=== PATIENT | female | born 1995 ===

== ENCOUNTER 2017-07-02 15:30 | Emergency (ER) | payer OTHER ==
[~2017-07-02] VITALS: Ht 165.1 cm; Wt 59.0 kg
[2017-07-02 15:48] VITALS: TEMP 37; Ht 165.1 cm; Wt 59.0 kg
[2017-07-02] MEDS ORDERED: SODIUM CHLORIDE 0.9% 1000ML 2,000 ML IV STA (16:00)
--- NOTE | 2017-07-02 16:24 | DIAGNOSTIC IMAGING REPORT ---
SINGLE VIEW CHEST CLINICAL HISTORY: Cough. FINDINGS: An AP, portable, upright chest radiograph is obtained. No prior studies are available for comparison at the time of dictation. The examination is degraded by portable technique. The cardiomediastinal silhouette is unremarkable. There are low lung volumes. Bibasilar airspace opacities are noted. No large pleural effusion or pneumothorax is seen. The bony thorax is grossly intact. IMPRESSION: There are low lung volumes with bibasilar airspace opacities. This likely represents atelectasis. Correlate clinically for evidence of developing pneumonia. Electronically signed by: Pepe Chacon M.D. 07/02/2017 4:23 PM Dictated Date/Time: 07/02/2017 4:22 PM
[2017-07-02 16:36] LABS: BASO % 0.3 %; BASO ABS # 0.02 K/uL (0-0.2); EOS % 2.8 %; EOS ABS # 0.17 K/uL (0-0.5); HEMATOCRIT 33.6 % (37-47); HEMOGLOBIN 12.1 g/dL (12.0-16.0); LYMPH ABS # 2.37 K/uL (1.2-3.4); MEAN CORPUSCULAR HEMOGLOBIN 29.9 pg (25-34); MEAN PLATELET VOLUME 8.9 fL (7.4-10.4); MONO % 6.4 %; MONO ABS # 0.39 K/uL (0.11-0.59); NEUT % 51.5 %; NEUT ABS # 3.12 K/uL (1.4-6.5); PLATELET COUNT 232 K/uL (130-400); RED CELL DISTRIBUTION WIDTH CV 12.7 % (11.5-14.5); RED CELL DISTRIBUTION WIDTH SD 38.4 fL (36.4-46.3); WHITE BLOOD COUNT 6.07 K/uL (4.8-10.8)
[2017-07-02 16:54] LABS: CALCIUM 8.4 mg/dl (8.5-10.1); CREATININE 0.81 mg/dl (0.60-1.20); POTASSIUM 3.4 mmol/L (3.5-5.1)
[2017-07-02 16:56] LABS: INFLUENZA B ANTIGEN Neg for Influ B (NEG)
--- NOTE | 2017-07-02 17:47 | DIAGNOSTIC IMAGING REPORT ---
CHEST 2 VIEWS ROUTINE CLINICAL HISTORY: Fever, cough. ABNORMAL CHEST X-RAY COMPARISON STUDY: 07/02/2017 FINDINGS: There is an improved inspiration. The cardiac and mediastinal contours remain stable. There is no focal pulmonary consolidation. There is no failure. There are no pleural effusions.[ IMPRESSION: No active disease in the chest. Electronically signed by: Stewart Campos M.D. 07/02/2017 5:46 PM Dictated Date/Time: 07/02/2017 5:45 PM
[2017-07-02 18:28] VITALS: BP 109/62; PULSE 82; O2SAT 100
--- NOTE | 2017-07-02 21:40 | EMERGENCY ROOM VISIT NOTE ---
History Report prepared by Ignacio: Edwina Eastman Under the Supervision of: Clarissa RossO. First contact with patient: 15:52 Chief Complaint: FLU LIKE SX Stated Complaint: HEADACHE, COUGH, FEVER, BODY PAINS, CONGESTION History of Present Illness The patient is a 22 year old female who presents to the Emergency Room with complaints of worsening flu-like symptoms for the past 5 days. Initially her symptoms began with a headache. Today she is feeling generally weak all over. Her headache has persisted. She has felt like she had a fever although she did not take her temperature. The patient reports sinus congestion, rhinorrhea, ear congestion, sore throat, and a productive cough with yellow, mucousy sputum. Her symptoms are worse at night. She rates her pain as a 6/10 in severity. She has been taking Motrin and Tylenol for her symptoms but did not take any today. Pt denies change in vision, chest pain, shortness of breath, nausea, vomiting, diarrhea, abdominal pain, urinary symptoms, melena, and abnormal vaginal discharge or bleeding. Her LNMP was 3 days ago. The patient was seen at [facility] previously for her symptoms and tested negative for the flu at that time. Source of History: patient Onset: 5 days ago Position: other (global) Symptom Intensity: 6/10 Quality: other (flu-like) Timing: worsening Modifying Factors (Worsening): other (nighttime) Modifying Factors (Relieving): tylenol, ibuprofen Associated Symptoms: + fevers, + headache, + sorethroat, + cough, + weakness , No chest pain, No SOB, No nausea, No vomiting, No abdominal pain, No melena, No diarrhea, No urinary symptoms Note: Pt notes sinus congestion, ear congestion, rhinorrhea. Review of Systems See HPI for pertinent positives & negatives. A total of 10 systems reviewed and were otherwise negative. Past Medical & Surgical Medical Problems: (1) No significant past medical history Family History No pertinent history stated. Social History Smoking Status: Never Smoker Occupation Status: [employer] student Allergies Coded Allergies: No Known Allergies (Unverified , 07/02/17) Physical Exam Vital Signs Date Time Temp Pulse Resp B/P (MAP) Pulse Ox O2 Delivery O2 Flow Rate FiO2 07/02/17 18:28 82 18 109/62 100 Room Air 07/02/17 16:48 70 18 104/65 100 Room Air 07/02/17 15:48 37.0 129 20 113/66 100 Room Air Physical Exam GENERAL: Sitting up in bed, alert, well appearing, well nourished, no distress, non-toxic EYE EXAM: normal conjunctiva. EARS: TMs clear bilaterally. OROPHARYNX: no exudate, no erythema, lips, buccal mucosa, and tongue normal and mucous membranes are moist NECK: supple, no nuchal rigidity, no adenopathy, non-tender LUNGS: Clear to auscultation. Normal chest wall mechanics HEART: no murmurs, S1 normal and S2 normal ABDOMEN: abdomen soft, non-tender, normo-active bowel sounds, no masses, no rebound or guarding. BACK: Back is symmetrical on inspection and there is no deformity, no midline tenderness, no CVA tenderness. SKIN: no rashes and no bruising UPPER EXTREMITIES: upper extremities are grossly normal. LOWER EXTREMITIES: No pitting edema. NEURO EXAM: Normal sensorium, cranial nerves II-XII grossly intact, normal speech, no gross weakness of arms, no gross weakness of legs. Ambulates without difficulty. Medical Decision & Procedures ER Provider Diagnostic Interpretation: Radiology results as stated below per my review and the radiologist's interpretation: SINGLE VIEW CHEST CLINICAL HISTORY: Cough. FINDINGS: An AP, portable, upright chest radiograph is obtained. No prior studies are available for comparison at the time of dictation. The examination is degraded by portable technique. The cardiomediastinal silhouette is unremarkable. There are low lung volumes. Bibasilar airspace opacities are noted. No large pleural effusion or pneumothorax is seen. The bony thorax is grossly intact. IMPRESSION: There are low lung volumes with bibasilar airspace opacities. This likely represents atelectasis. Correlate clinically for evidence of developing pneumonia. Electronically signed by: Pepe Chacon M.D. 07/02/2017 4:23 PM Dictated Date/Time: 07/02/2017 4:22 PM CHEST 2 VIEWS ROUTINE CLINICAL HISTORY: Fever, cough. ABNORMAL CHEST X-RAY COMPARISON STUDY: 07/02/2017 FINDINGS: There is an improved inspiration. The cardiac and mediastinal contours remain stable. There is no focal pulmonary consolidation. There is no failure. There are no pleural effusions.[ IMPRESSION: No active disease in the chest. Electronically signed by: Stewart Campos M.D. 07/02/2017 5:46 PM Dictated Date/Time: 07/02/2017 5:45 PM Laboratory Results 07/02/17 16:21 Red Blood Count 4.05, Mean Corpuscular Volume 83.0, Mean Corpuscular Hemoglobin 29.9, Mean Corpuscular Hemoglobin Concent 36.0, Mean Platelet Volume 8.9, Neutrophils (%) (Auto) 51.5, Lymphocytes (%) (Auto) 39.0, Monocytes (%) (Auto) 6.4, Eosinophils (%) (Auto) 2.8, Basophils (%) (Auto) 0.3, Neutrophils # (Auto) 3.12, Lymphocytes # (Auto) 2.37, Monocytes # (Auto) 0.39, Eosinophils # (Auto) 0.17, Basophils # (Auto) 0.02 07/02/17 16:21 Test 07/02/17 16:11 07/02/17 16:21 Influenza Type A Antigen Neg for Influ A (NEG) Influenza Type B Antigen Neg for Influ B (NEG) White Blood Count 6.07 K/uL (4.8-10.8) Red Blood Count 4.05 M/uL (4.2-5.4) Hemoglobin 12.1 g/dL (12.0-16.0) Hematocrit 33.6 % (37-47) Mean Corpuscular Volume 83.0 fL (80-100) Mean Corpuscular Hemoglobin 29.9 pg (25-34) Mean Corpuscular Hemoglobin Concent 36.0 g/dl (32-36) Platelet Count 232 K/uL (130-400) Mean Platelet Volume 8.9 fL (7.4-10.4) Neutrophils (%) (Auto) 51.5 % Lymphocytes (%) (Auto) 39.0 % Monocytes (%) (Auto) 6.4 % Eosinophils (%) (Auto) 2.8 % Basophils (%) (Auto) 0.3 % Neutrophils # (Auto) 3.12 K/uL (1.4-6.5) Lymphocytes # (Auto) 2.37 K/uL (1.2-3.4) Monocytes # (Auto) 0.39 K/uL (0.11-0.59) Eosinophils # (Auto) 0.17 K/uL (0-0.5) Basophils # (Auto) 0.02 K/uL (0-0.2) RDW Standard Deviation 38.4 fL (36.4-46.3) RDW Coefficient of Variation 12.7 % (11.5-14.5) Immature Granulocyte % (Auto) 0.0 % Immature Granulocyte # (Auto) 0.00 K/uL (0.00-0.02) Anion Gap 3.0 mmol/L (3-11) Est Creatinine Clear Calc Drug Dose 98.9 ml/min Estimated GFR () 120.3 Estimated GFR (Non- 103.8 BUN/Creatinine Ratio 12.3 (10-20) Calcium Level 8.4 mg/dl (8.5-10.1) Laboratory results per my review. Medications Administered Medications (Trade) Dose Ordered Sig/Anuel Route Start Time Stop Time Status Last Admin Dose Admin Sodium Chloride 2,000 ml @ 999 mls/hr Q2H1M STAT IV 07/02/17 16:00 07/02/17 18:00 DC 07/02/17 16:22 999 MLS/HR ED Course ED COURSE: Vital signs were reviewed and showed tachycardic. The patients medical record was reviewed The above diagnostic studies were performed and reviewed. ED treatments and interventions as stated above. 1552: The patient was evaluated in room A10. A complete history and physical examination was performed. 1600: NSS 2000 ml @ 999 mls/hr IV 1844: Upon reevaluation, the patient is feeling better and resting comfortably. I discussed my findings with the patient and she understands and agrees with the treatment plan. Based on the patients age, coexisting illnesses, exam and lab findings the decision to treat as an outpatient was made. The patient remained stable while under my care. The patient appeared well at the time of discharge. Medical Decision Differential Diagnosis includes but is not limited to dehydration, stroke, anemia, hypoglycemia, hyponatremia, hypernatremia, urinary tract infection, pneumonia, bronchitis, sepsis, gastroenteritis, additional abdominal pathology, metabolic abnormalities and infections. Patient is a 22-year-old female who presents to ER with a yellow productive cough, runny nose, headache and ear congestion associated with a sore throat. CBC all BMP was unremarkable. Exam is benign. No signs meningitis or encephalitis. Initial chest x-ray had poor historian effort and It Was Repeated and Shows No Infiltrate. Flu a and B Were Negative. She Was Given Fluids and [place] Slightly Better. Based on Symptoms and Do Believe That She Likely Has a Viral URI. Discharged to Take Tylenol and Motrin Follow-Up with Daily at Bedtime As an Outpatient. Discussed with Pt concerning signs and symptoms to watch out for. Pt was instructed to follow up with their PCP and discussed with the patient their option to return to the ED at anytime for persistent or worsening symptoms. The appropriate anticipatory guidance and out- patient management, including indications for return to the emergency department , were explained at length to the patient and understood. Medication Reconcilliation Current Medication List: was personally reviewed by me Blood Pressure Screening Patient's blood pressure: Normal blood pressure Impression Primary Impression: Upper respiratory infection Additional Impression: Hypokalemia Scribe Attestation The scribe's documentation has been prepared under my direction and personally reviewed by me in its entirety. I confirm that the note above accurately reflects all work, treatment, procedures, and medical decision making performed by me. Departure Information Dispostion Home / Self-Care Referrals [facility] Forms HOME CARE DOCUMENTATION FORM, IMPORTANT VISIT INFORMATION, School Instructions Patient Instructions ED URI Viral, [facility] Additional Instructions Please follow up with your primary care doctor with in the next 24 hours. Any worsening of your symptoms, please return to the ED immediately. This includes any fevers greater than 100.4, worsening pain, chest pain, shortness breath, persistent nausea, vomiting, unable to eat or drink, or any other concerning signs or symptoms from your standpoint. Please take Tylenol or Motrin as needed for muscle aches. Problem Qualifiers Primary Impression: Upper respiratory infection URI type: unspecified URI Qualified Codes: J06.9 - Acute upper respiratory infection, unspecified
== END 2017-07-02 19:06 | disposition home or self-care (01) ==
LOC: C.EDB 15:32 → C.EDA 19:06
DX: J06.9 Acute upper respiratory infection, unspecified (principal); E87.6 Hypokalemia